=== PATIENT | male | born 1940 | race Caucasian/White ===

== ENCOUNTER 2017-02-13 10:42 | Inpatient (IN) | payer MEDICARE ==
[~2017-02-13] VITALS: Ht 172.7 cm; Wt 100.8 kg
--- NOTE | ~2017-02-13 | OR ---
ADMIT: 02/13/2017 RM/LOC: 507 [facility] MR#: [id number] [facility]#: [id number] [address] [address] RADHA CLAYTON [address] [place] [address] Operative/Delivery Room Report SEX: M AGE: 76 : 1940 SURGERY DATE: 02/14/2017 SURGEON: Raul Cortez MD PREOPERATIVE DIAGNOSIS: Anemia, question upper gastrointestinal blood loss. POSTOPERATIVE DIAGNOSIS: Very mild reflux changes at the gastroesophageal junction. Otherwise, normal appearing upper endoscopy. No evidence of upper gastrointestinal blood loss. PROCEDURE PERFORMED: EGD with biopsies. ANESTHESIA: Sedation. ESTIMATED BLOOD LOSS: None. DESCRIPTION OF PROCEDURE: After appropriate informed consent was obtained, the patient was brought to the endoscopy suite. IV sedation was provided. A well-lubricated endoscope was introduced and passed down the esophagus. The proximal and mid esophagus appeared normal. Distal esophagus showed very mild reflux changes, no evidence of hiatal hernia, no stricture or narrowing. Of note, also there was no evidence of esophageal diverticulum or proximal esophageal narrowing to account for his swallowing difficulties. The scope was advanced to the stomach. The gastric mucosa appeared normal throughout. No evidence of gastritis. No ulcerations. No mass or tumor. The pylorus was intubated. Duodenal bulb, second and third portions of the duodenum appeared normal. The scope was then pulled back into the stomach, retroflexed, revealing no hiatal hernia from below. No proximal gastritis or mass. Several biopsies were then taken of the distal esophagus. The stomach was then deflated, and scope was withdrawn without apparent complications. We will plan on proceeding with colonoscopy tomorrow to rule out lower GI blood loss as the cause of his anemia. Raul Cortez MD/ marcela JOB #: [id number] CC: Javier Johnson, Attending Physician Javier Johnson, Family Physician Javier Johnson MD
--- NOTE | 2017-02-14 13:52 | CO ---
ADMIT: 02/13/2017 RM/LOC: 507 [facility] MR#: [id number] ACC#: [id number] 2620 [facility] [address] [place] [phone] RADHA CLAYTON [address] [place] [address] Consultation SEX: M AGE: 76 : 1940 DATE OF CONSULTATION: 02/13/2017 ATTENDING PHYSICIAN: Javier Johnson CONSULTING PHYSICIAN: Luis Perez MD REASON FOR CONSULTATION: Anemia and questionable GI bleed. HISTORY OF PRESENT ILLNESS: Radha is a very pleasant 76-year-old male, who reports a 2-3 day history of dark stools. And then this morning, he had a large bowel movement where he noticed bright red blood in the stool. He denies any abdominal pain, diarrhea, constipation, nausea or vomiting. He did notice that he felt fairly weak this morning when he was trying to put on his shoes. Because of his symptoms, he was seen in our Emergency Department, where he was worked up and had heme-positive stools and was found to be anemic. He has a history of colonoscopies with his last one being back in August of 2012 that appeared to have no pertinent findings. He denies any prior EGD's. He does take two 81 mg aspirin daily, but denies any other blood thinning medication use. The patient and his are actually from [place], [place] but in town here visiting the patient's mom. They were scheduled to fly back tomorrow. PAST MEDICAL HISTORY: Significant for hypercholesterolemia, hypothyroidism, umbilical hernia, ocular migraines, diastasis recti, history of colon polyps, and hemorrhoids. PAST SURGICAL HISTORY: Last colonoscopy was August of 2012. Please see HPI. ALLERGIES: SULFA. MEDICATIONS: Two 81 mg aspirin daily. All other pertinent medications are documented in chart. FAMILY HISTORY: Noncontributory. SOCIAL HISTORY: The patient is a former tobacco user but quit approximately 40 years ago. He drinks the occasional alcoholic drink. Denies any illicit drug use. REVIEW OF SYSTEMS: CONSTITUTIONAL: The patient denies any fever, chills, or night sweats. The rest of a comprehensive 10-point review of systems was performed and all other systems are negative. PHYSICAL EXAMINATION: GENERAL: The patient is in no acute distress. He is ADMIT: 02/13/2017 RM/LOC: 507 [facility] MR#: [id number] [address] [address] RADHA CLAYTON [address] [place] [address] Consultation SEX: M AGE: 76 : 1940 alert and oriented. HEENT: Head is normocephalic and atraumatic. EOMS are intact. Conjunctivae free of icterus, erythema, or pallor. Pinnae, free of deformities. Nose, midline. No tracheal deviation. NECK: Supple. SKIN: Negative for jaundice, clubbing, edema, pallor, or cyanosis. LUNGS: Clear to auscultation bilaterally. Normal respiratory effort. HEART: Distal pulses intact. Regular rate and rhythm. ABDOMEN: Soft, nondistended. Umbilical hernia noted and diastasis recti noted. NEURO: Grossly intact. LABORATORY DATA: Hemoglobin 10.4. ASSESSMENT: 1. Anemia. 2. Upper and lower gastrointestinal bleed. PLAN: I discussed upper and lower endoscopy with the patient given his pertinent findings. Per the patient request, he would prefer to see tomorrow his hemoglobin and wait on endoscopy for 24 hours. I find this reasonable at this time. So, we will based therapy off his hemoglobin tomorrow. I did discuss with the patient, however, if his hemoglobin were to drop, we would proceed with endoscopy, which the patient understands and agrees. Should his hemoglobin improve, I have recommended outpatient followup with his doctor back in [place], [place] for upper and lower endoscopy, which he also agrees. In the meantime, we will check a CBC in the morning and I will get him started on clears and we will consent for endoscopy at this time. Thank you for the consultation on this patient. BILLY Mckenzie / Luis Perez MD / marcela JOB #: [id number] CC: Javier Johnson, Attending Physician Javier Johnson, Family Physician
[2017-02-21] MEDS ORDERED: PRAVACHOL20 MG PO (10:55)
[2017-02-21] MEDS ORDERED: CINNAMON500 MG PO (10:56)
[2017-02-21] MEDS ORDERED: OSTEO BI-FLEX1 EAC1 PO (10:56)
[2017-02-21] MEDS ORDERED: LEVOTHYROXINE100 MCG PO (10:56)
[2017-02-21] MEDS ORDERED: CO Q-10100 MG PO (10:57)
[2017-02-21] MEDS ORDERED: GRAPE SEED 501 EACH PO (10:57)
[2017-02-21] MEDS ORDERED: MAGNESIUM200 MG PO (10:58)
[2017-02-21] MEDS ORDERED: VITAMIN C1000 MG PO (10:58)
[2017-02-21] MEDS ORDERED: DAILY MULTIPLE1 EAC1 PO (10:58)
[2017-02-21] MEDS ORDERED: OMEGA-3 DPS1000 MG PO (11:01)
[2017-02-21] MEDS ORDERED: CLARITIN DPS10 MG PO (11:01)
[2017-02-21] MEDS ORDERED: VITAMIN D31000 UNIT PO (11:01)
[2017-02-21] MEDS ORDERED: BIOFLAVONOIDS PO (11:01)
[2017-02-21] MEDS ORDERED: CALCIUM + VITA1 EACH PO (11:02)
[2017-02-21] MEDS ORDERED: TYLENOL DPS325 MG PO (11:03)
[2017-02-21] MEDS ORDERED: PROTONIX40 MG PO (11:03)
--- NOTE | 2017-02-21 11:26 | OR ---
ADMIT: 02/13/2017 RM/LOC: 507 [facility] MR#: [id number] [facility]#: [id number] [address] [address] RADHA CLAYTON [address] [place] [id number] Operative/Delivery Room Report SEX: M AGE: 76 : 1940 SURGERY DATE: 02/15/2017 SURGEON: Raul Cortez MD PREOPERATIVE DIAGNOSIS: Persistent gastrointestinal bleed with negative upper endoscopy. POSTOPERATIVE DIAGNOSIS: A large amount of blood within the colon, but no evidence of active bleeding from the colon, but evidence of melenic-type stool and blood coming from the small bowel. PROCEDURE PERFORMED: Colonoscopy. ANESTHESIA: Sedation. ESTIMATED BLOOD LOSS: None. DESCRIPTION OF PROCEDURE: After appropriate informed consent was obtained, the patient was brought to the endoscopy suite. IV sedation was provided. Rectal exam revealed no hemorrhoids and no rectal mass. The scope was introduced immediately and the rectal vault had large amount of blood. I started irrigating and suctioning it out. I slowly advanced the scope through the sigmoid colon, there really did not appear to be any evidence of diverticula. No polyps or masses were identified. The scope was easily advanced down to the cecum, and again throughout the colon, there was a large amount of dark red blood throughout. So, within the cecum I started irrigating the blood and fluid out. The ileocecal valve and appendiceal orifice were normal. The ileocecal valve was intubated. I was not able to drive the scope very far proximally up the small bowel, but I did see a lot of melenic dark blood in stool within the small bowel, and then as I was watching in the cecum also, I could see more of this melenic stool coming out of the ileocecal valve into the cecum. So it appeared that he was likely still bleeding from somewhere proximal to the colon likely within the small bowel since he had negative upper endoscopy yesterday. I then slowly and carefully withdrew the scope. I irrigated all the blood and fluid out of the colon and inspected the colonic mucosa which all appeared normal. The scope was retroflexed in the rectum revealing no internal hemorrhoids or rectal masses. The patient tolerated the procedure well and was taken to the recovery room in stable condition. Raul Cortez MD/ marcela JOB #: [id number] CC: Javier Johnson, Attending Physician Javier Johnson, Family Physician ADMIT: 02/13/2017 RM/LOC: 507 [facility] MR#: [id number] [facility] [address] [address] RADHA CLAYTON [address] [place] [address] Operative/Delivery Room Report SEX: M AGE: 76 : 1940 Javier Johnson MD
--- NOTE | 2017-03-03 15:00 | ER ---
ADMIT: 02/13/2017 RM/LOC: ER [facility] MR#: [id number] [address] [address] RADHA CLAYTON [address] [place] [address] Emergency Room Report SEX: M AGE: 76 : 1940 DATE: 02/13/2017 ADDENDUM: This is a 76-year-old white male, coming in with rectal bleeding. He got michael melanotic stool, heme-positive, hemoglobin is 10.4, his hemoglobin normally runs at 15, had old records. I do not feel anything on rectal exam. Chest x-ray, negative. At this time, I spoke to Dr. Johnson, City-call, he will need to admit him. He is typed and screened. CONDITION ON DISCHARGE: Serious, but stable. Yoshi Chatman MD/ marcela JOB #: [id number] CC: Yoshi Chatman MD, Attending Physician Javier Johnson MD, Family Physician
--- NOTE | 2017-03-18 16:38 | HP ---
ADMIT: 02/13/2017 RM/LOC: 507 [facility] MR#: [id number] [facility]#: [id number] 2620 [facility] [address] [place] [phone] RADHA CLAYTON [address] [place] [address] History and Physical SEX: M AGE: 76 : 1940 DATE OF SERVICE: CHIEF COMPLAINT: Rectal bleeding. HISTORY OF PRESENT ILLNESS: This is a very pleasant 76-year-old white male, who normally lives in [place], is vacationing here visiting family, who over the last 48 hours or so has had change in bowel habits. He has noted that he has had more dark stools, even black stools at times. He thought there was maybe a little bit of blood tinge and then this morning, his noted that his stools were michael blood. He was dizzy. He was lightheaded, pale. Came to the emergency room where he was found to have a hemoglobin drop of about 5 g. His baseline hemoglobin is 15. His current hemoglobin is 10.4. He has heme-positive stool with gross melena. Therefore, he is being admitted for further workup and stabilization. His blood pressure is stable. He is not tachycardic. PAST MEDICAL HISTORY: Remarkable for previous hemorrhoids, seasonal allergies, hyperlipidemia, hypothyroidism, and previous colon polyps. Last colonoscopy was in 2011, which he reports as normal. CURRENT MEDICATIONS: 1. Alendronate 60 mg every week. 2. Vitamin C 1000 mg daily. 3. Aspirin 81 mg daily. 4. Bioflavonoids 1000 mg daily. 5. Calcium with vitamin D daily. 6. Cholecalciferol 1000 units daily. 7. Cinnamon two tabs daily. 8. Coenzyme Q10 at 100 mg daily. 9. Pepcid 20 mg b.i.d. 10.Grape seed daily. 11.Levothyroxine 100 mcg daily plus 88 mcg daily. 12.Loratadine 10 mg daily. 13.Magnesium 200 mg daily. 14.Osteo Bi-Flex one tab daily. 15.Multivitamin daily. 16.Maben-3 fatty acids 1000 mg two daily. 17.Pravastatin 40 mg at bedtime. FAMILY HISTORY: Father , had lung cancer. Mother still living; she has CHF, uterine cancer, and hypertension. SOCIAL HISTORY: Does not smoke. Does not drink. He has retired from the [employer]. REVIEW OF SYSTEMS: GENERAL: No fevers or chills. HEENT: No headaches, but has had dizziness and lightheadedness. CARDIAC: No chest pains. PULMONARY: No shortness of breath. ADMIT: 02/13/2017 RM/LOC: 507 [facility] MR#: [id number] [address] [address] RADHA CLAYTON [address] [place] [address] History and Physical SEX: M AGE: 76 : 1940 GASTROINTESTINAL: No nausea. No vomiting. GENITOURINARY: No dysuria, urgency, or frequency. ENDOCRINE: No polyuria or polydipsia. PSYCH: No depression. INTEGUMENTARY: No new rashes. MUSCULOSKELETAL: No new aches or pains. PHYSICAL EXAMINATION: VITAL SIGNS: Blood pressure is 117/54, pulse 75, respirations 18, temp is 95.9. GENERAL: No acute distress. He is alert, interactive, oriented. HEENT: Pupils are reactive. Conjunctivae are clear. Clear nasal mucosa. Clear oropharynx. Moist mucous membranes. NECK: Soft and supple. LUNGS: Clear to auscultation with normal respiratory effort. HEART: Regular rate and rhythm. ABDOMEN: Soft. No significant tenderness by my palpation. EXTREMITIES: No cyanosis. No clubbing. No edema. SKIN: No rashes. LABORATORY AND X-RAY DATA: White count 12,400; hemoglobin 10.4, down from last hemoglobin of 15. Sodium 140, potassium 4.1, chloride 109, CO2 of 24, BUN 28, creatinine 1.1. Glucose 128, calcium 8.5, total bilirubin 0.4, total protein 5.8, albumin 3.4. Alkaline phosphatase 37, AST 16, ALT 16, Hemoccult positive. ASSESSMENT: 1. Acute gastrointestinal bleed. 2. Hypothyroidism. 3. Hyperlipidemia. PLAN: We will admit. We will keep n.p.o. right now. Start IV Protonix. Check serial H and H's. Aggressively hydrate with IV fluids. Surgery to see. We will change treatment as hospital course dictates. Javier Johnson MD/ marcela JOB #: [id number] CC: Javier Johnson, Attending Physician Javier Johnson, Family Physician
--- NOTE | 2017-03-20 08:51 | CO ---
ADMIT: 02/13/2017 RM/LOC: 507 [facility] MR#: [id number] [facility]#: [id number] [address] [address] FORRE[address] [place] [address] Consultation Report SEX: M AGE: 76 : 1940 Corrected: 02/15/2017 0627 njv DATE OF CONSULTATION: 02/13/2017 ATTENDING PHYSICIAN: Javier Johnson CONSULTING PHYSICIAN: Luis Perez MD HISTORY OF PRESENT ILLNESS: The patient is a pleasant 76-year-old male, on vacation from [facility] who gets his normal medical care in that region. His last colonoscopy was in 2011 about that time and is about due for 5-year surveillance I believe. He does have a history of polyps. He presented with feeling a bit week and several history of possibly black stools and then in the last two bowel movements has had some bright red painless rectal bleeding. He denies issues chronically with diarrhea or constipation. He does take 2 aspirin a day. Does not take non-steroidals regularly. Past medical history, surgical history, allergies, medications, family history, social history are outlined in the patient's chart as well as review of systems by Yoshi Cardenas's note. PHYSICAL EXAMINATION: VITAL SIGNS: He is afebrile. HEART: Regular. LUNGS: Clear. ABDOMEN: Soft, nondistended, and nontender. He had no peripheral edema. NEUROLOGICAL: No focal neurologic deficits. ASSESSMENT AND PLAN: The patient is a 76-year-old with first dark stools now bright bloody stools with anemia. Our plan is to make him n.p.o. after midnight. Plan an upper endoscopy tomorrow morning. The did request that if the blood count did not drop too much, maybe we could then bowel prep him and then do a combined EGD colonoscopy possibly the following day to limit his procedures that want sedation. If his hemoglobin drops fairly significantly, we will likely just proceed with upper endoscopy. Luis Perez MD/ marcela JOB #: [id number] CC: Javier Johnson, Attending Physician Javier Johnson, Family Physician Corrected: 02/15/2017 0627 njarden
--- NOTE | 2017-04-24 10:20 | DS ---
ADMIT: 02/13/2017 RM/LOC: 507 [facility] MR#: [id number] 2620 [facility] [address] [place], [place] [address] RADHA CLAYTON [address] [place] [id number] General Discharge Summary SEX: M AGE: 76 : 1940 ADMISSION DATE: 02/13/2017 DISCHARGE DATE: 02/20/2017 FINAL DIAGNOSIS: 1. Acute gastrointestinal bleed. 2. Hypothyroidism. 3. Hyperlipidemia. 4. Acute blood loss anemia. REASON FOR ADMISSION: This is a very pleasant 76-year-old white male who was here visiting family and developed a 2-3 day history of dark stools, now michael blood, vague lower abdominal pain, cramping, dizzy, lightheaded. Came to the emergency room where he was found to have heme-positive stools and hemoglobin of 10.4. Therefore, he was admitted for further workup and stabilization. HOSPITAL COURSE: He was admitted on 02/13/2017. Serial H and Hs were monitored. Surgery was consulted. We did try to obtain old records. He was placed on Protonix IV. He was given clear liquids, consented for EGD, colonoscopy. We held any anticoagulation for DVT prophylaxis and just used sequential compression devices. On 02/14/2017, he felt fine, denied lightheadedness or dizziness. His hemoglobin was down to 7.4. He underwent EGD, which showed mild reflux but nothing else significant. He was then prepped for a colonoscopy. His hemoglobin dropped to 5.5, so we did type and cross 2 units and they were transfused. His repeat hemoglobin was 6.7, so we did transfuse another 2 units at that point. On 02/15/2017, his hemoglobin was stable. He underwent colonoscopy, which did not show any obvious source, so they did a stat bleeding scan. Unfortunately, that did not show anything either. On 02/09/2017, okay night. Hemoglobin was down to 7. His potassium was a little bit low, so this was replaced orally. On 02/17/2017, he had an okay night. Hemoglobin was down to 6.6, so we did transfuse 2 more units of packed red blood cells, as he was symptomatic with shortness of breath with any significant activity. On 02/18/2017, we discontinued his telemetry, still had not had a bowel movement. His hemoglobin remained stable on 02/19/2017. Things were stable 02/20/2015. Hemoglobin was stable at 8.3, and he was felt stable for discharge. They planned on staying a few days before heading back home. DISCHARGE INSTRUCTIONS: 1. Caltrate 600 mg daily. 2. Glucosamine chondroitin 2 tabs daily. 3. Pravachol 40 mg at bedtime. 4. Synthroid 0.1 mg daily. 5. Multivitamin daily. 6. Vitamin D 1000 units daily. 7. Claritin 10 mg daily p.r.n. 8. Tylenol 325 mg 2 tabs q.4 hours p.r.n. 9. Osteo Bi-Flex 1500/1500 mg daily. 10.Cinnamon 500 mg b.i.d. 11.Grapeseed OPC 250 mg daily. ADMIT: 02/13/2017 RM/LOC: 507 [facility] MR#: [id number] [address] [address] RADHA CLAYTON [address] [place] [address] General Discharge Summary SEX: M AGE: 76 : 1940 12.CoQ10 100 mg daily. 13.Vitamin C 1000 mg b.i.d. 14.Magnesium 200 mg daily. 15.Multivitamin daily. 16.Bioflavonoids 1000 mg daily. 17.Vitamin D3 1000 units daily. 18.Fish oil 1000 mg b.i.d. 19.Hold his aspirin. 20.Pantoprazole 40 mg daily. Check hemoglobin at Family Practice office in a.m. Follow up with his primary care provider in [place] when he returns to home. Any evidence he is to let us know immediately. Javier Johnson MD/ nikole JOB #: [id number] CC: Javier Johnson MD, Attending Physician Javier Johnson MD, Family Physician
== END 2017-02-20 11:37 | disposition home or self-care (01) | DRG 378 ==
LOC: ER 10:42 → 5MS 11:50
PROVIDERS: ADMIT Family Medicine
PROC: 0DB38ZX Excision of Lower Esophagus, Via Natural or Artificial Opening Endoscopic, Diagnostic (ICD-10-PCS; principal; 2017-02-14)
PROC: 0DJD8ZZ Inspection of Lower Intestinal Tract, Via Natural or Artificial Opening Endoscopic (ICD-10-PCS; 2017-02-15)
PROC: 30233N1 Transfusion of Nonautologous Red Blood Cells into Peripheral Vein, Percutaneous Approach (ICD-10-PCS; 2017-02-15)
DX: K92.1 Melena (principal); D62 Acute posthemorrhagic anemia; E03.9 Hypothyroidism, unspecified; E78.5 Hyperlipidemia, unspecified; E66.9 Obesity, unspecified; K21.9 Gastro-esophageal reflux disease without esophagitis; K42.9 Umbilical hernia without obstruction or gangrene; Z86.010 Personal history of colon polyps; Z79.82 Long term (current) use of aspirin; Z87.891 Personal history of nicotine dependence; Z68.31 Body mass index [BMI] 31.0-31.9, adult